=== PATIENT | female | born 1975 | race Two or more races ===

== ENCOUNTER 2017-06-12 09:53 | Day surgery (SDC) | payer OTHER ==
[2017-06-12 10:22] VITALS: BMI 30.2
[2017-06-12] MEDS ORDERED: PROPOFOL 20 ML ONE ×3 (11:45)
[2017-06-12] MEDS ORDERED: LIDOCAINE HCL/PF 2% SDV 5ML VIAL ONE (11:45)
[2017-06-12 12:22] VITALS: TEMP 97.5
[2017-06-12 15:58] VITALS: BP 124/68; PULSE 71
== END 2017-06-12 13:30 | disposition home or self-care (01) ==
LOC: JASU-ENDO 09:53
PROVIDERS: ATTEND Internal Medicine Gastroenterology
PROC: 0DJD8ZZ Inspection of Lower Intestinal Tract, Via Natural or Artificial Opening Endoscopic (ICD-10-PCS; principal; 2017-06-12 10:30)
DX: R19.4 Change in bowel habit (principal)
CPT/HCPCS: 84703

== ENCOUNTER 2021-10-13 13:43 | Observation (INO) | payer OTHER ==
[2021-10-13 16:18] LABS: ALBUMIN 3.6 g/dl (3.4-5.0); BLOOD UREA NITROGEN 12.2 mg/dL (7-18); CALCIUM 8.5 mg/dL (8.5-10.1)
[2021-10-13 16:19] LABS: BASO % 1.2 % (0-2.0); EOS % 2.1 % (0-4.5); LYMPH % 44.8 % (8-40); MCHC 28.4 g/dl (32.0-36.0); MEAN CELL VOLUME 53.7 fl (80-96); MEAN PLT VOLUME 8.2 fl (7.5-11.1); NEUT % 43.9 % (42.8-82.8); PLATELET COUNT 406 10^3/uL (134-434); RBC 4.29 M/mm3 (3.60-5.2)
[2021-10-13 16:21] LABS: CREATININE 0.5 mg/dL (0.55-1.3)
[2021-10-13 16:23] LABS: BILIRUBIN,TOTAL 0.2 mg/dL (0.2-1); TOT PROT 7.6 g/dl (6.4-8.2)
[2021-10-13 16:27] LABS: EPI CELLS >36 /uL (0-25.1); HYALINE CASTS 1 /uL (0-3.1); MCH 15.3 pg (25.7-33.7); URINE APPEARANCE CLEAR; URINE BACTERIA 4370 /uL (0-1359); URINE BILIRUBIN NEGATIVE (NEGATIVE); URINE COLOR YELLOW; URINE GLUCOSE (UA) NEGATIVE (NEGATIVE); URINE KETONE NEGATIVE (NEGATIVE); URINE LEUK ESTERASE NEGATIVE (NEGATIVE); URINE NITRITE NEGATIVE (NEGATIVE); URINE PROTEIN NEGATIVE (NEGATIVE); URINE RBC 4 /uL (0-23.9); URINE UROBILINOGEN 0.2 mg/dL (0.2-1.0); URINE WBC 25 /uL (0-25.8)
[2021-10-13 16:34] LABS: HEMOGLOBIN 6.5 GM/dL (10.7-15.3)
[2021-10-13 16:35] LABS: ADD RBC MORPHOLOGY YES
[2021-10-13 16:43] LABS: ACTIVATED PTT 24.9 SECONDS (25.2-36.5); INR 1.01 (0.83-1.09); PROTHROMBIN TIME (PATIENT) 11.6 SEC (9.7-13.0)
[2021-10-13 18:54] LABS: ANISOCYTOSIS 1+; MACROCYTOSIS 1+; OVALOCYTE 1+; PLATELET ESTIMATE NORMAL; TARGET CELLS 1+
[2021-10-13 23:33] VITALS: BMI 29.0
[2021-10-14 06:53] VITALS: PULSE 67
[2021-10-14] MEDS ORDERED: LEVOTHYROXINE NA 25 MCG TABLET (FP) PO SCH (07:00)
[2021-10-14 08:17] LABS: BASO % 0.9 % (0-2.0); HEMATOCRIT 25.8 % (32.4-45.2); HEMOGLOBIN 7.8 GM/dL (10.7-15.3); LYMPH % 48.5 % (8-40); MCHC 30.3 g/dl (32.0-36.0); MEAN CELL VOLUME 57.2 fl (80-96); MEAN PLT VOLUME 8.1 fl (7.5-11.1); MONO % 10.4 % (3.8-10.2); NEUT % 38.2 % (42.8-82.8); PLATELET COUNT 364 10^3/uL (134-434); RBC 4.52 M/mm3 (3.60-5.2); RDW 24.4 % (11.6-15.6); WHITE BLOOD COUNT 5.1 K/mm3 (4.0-10.0)
[2021-10-14 08:23] LABS: MCH 17.3 pg (25.7-33.7)
[2021-10-14] MEDS ORDERED: FERRIC CARBOXYMALTOSE 750 MG/15 ML VIAL IVPB ONE (08:30)
[2021-10-14 10:09] LABS: ALBUMIN 3.5 g/dl (3.4-5.0); CALCIUM 8.6 mg/dL (8.5-10.1)
[2021-10-14 10:10] LABS: BLOOD UREA NITROGEN 9.7 mg/dL (7-18)
[2021-10-14 10:12] LABS: CREATININE 0.7 mg/dL (0.55-1.3); PHOSPHOROUS 3.6 mg/dL (2.5-4.9)
[2021-10-14 10:14] LABS: BILIRUBIN,TOTAL 0.5 mg/dL (0.2-1); TOT PROT 7.3 g/dl (6.4-8.2)
[2021-10-14] MEDS ORDERED: FERRIC CARBOXYMALTOSE 750 MG in SODIUM CHLORIDE 250 ML IVPB ONE (10:39)
[2021-10-14 15:08] VITALS: BP 133/78; TEMP 98.3
== END 2021-10-14 18:36 | disposition home or self-care (01) ==
LOC: JER 13:43 → JERBED 16:50 → UNDOADMOB 16:50 → INTOOBSV 16:50 → JERBED 17:30 → J7W 22:49 → JERBED 22:49 → J7W 22:49
PROVIDERS: ADMIT Internal Medicine; ATTEND Internal Medicine
PROC: 3E033GC Introduction of Other Therapeutic Substance into Peripheral Vein, Percutaneous Approach (ICD-10-PCS; principal; 2021-10-13)
DX: K21.9 Gastro-esophageal reflux disease without esophagitis (principal); E07.9 Disorder of thyroid, unspecified; D64.9 Anemia, unspecified; N94.89 Other specified conditions associated with female genital organs and menstrual cycle; Z87.898 Personal history of other specified conditions; D25.9 Leiomyoma of uterus, unspecified
CPT/HCPCS: 36415; 36430; 71046-TC-FY; 76830-TC; 80053; 81003; 82272; 82728; 83540; 83550; 83735; 84100; 84443; 85025; 85610; 85730; 86850; 86900; 86901; 86922; 87086; 93005; 93010; 96365; 99285-25; C9803; G0378; J1439; P9038; P9058; U0003; U0005

== ENCOUNTER 2022-01-13 13:08 | Emergency (ER) | payer OTHER ==
[2022-01-13 13:26] VITALS: TEMP 98.4; BMI 31.1
[2022-01-13] MEDS ORDERED: DEXAMETHASONE SOD PHOSPHATE 10 MG/1 ML VIAL PO ONE (14:59)
[2022-01-13] MEDS ORDERED: KETOROLAC TROMETHAMINE 30 MG/1 ML VIAL IM ONE (14:59)
[2022-01-13] MEDS ORDERED: DEXAMETHASONE SOD PHOSPHATE 10 MG/1 ML VIAL ONE (15:03)
[2022-01-13] MEDS ORDERED: KETOROLAC TROMETHAMINE 30 MG/1 ML VIAL ONE (15:03)
[2022-01-13 16:42] VITALS: BP 115/78; PULSE 79
== END 2022-01-13 16:51 | disposition home or self-care (01) ==
LOC: JERFT 13:08
PROC: 3E023GC Introduction of Other Therapeutic Substance into Muscle, Percutaneous Approach (ICD-10-PCS; principal; 2022-01-13)
DX: M25.511 Pain in right shoulder (principal)
CPT/HCPCS: 73030-TC-RT-FY; 99284-25; J1100

== ENCOUNTER 2025-04-07 05:09 | Emergency (ER) | payer OTHER ==
[2025-04-07 05:16] VITALS: BP 127/81; PULSE 71; RESP 18; TEMP 97.9; BMI 31.1
[2025-04-07] MEDS ORDERED: LIDOCAINE 4% PATCH TP ONE (05:50)
[2025-04-07] MEDS ORDERED: KETOROLAC TROMETHAMINE 30 MG/1 ML VIAL ONE (05:50)
[2025-04-07] MEDS ORDERED: DEXAMETHASONE SOD PHOSPHATE 10 MG/1 ML VIAL ONE (05:50)
[2025-04-07] MEDS ORDERED: METHOCARBAMOL 500 MG TABLET ONE (05:50)
[2025-04-07] MEDS: METHOCARBAMOL 500 MG TABLET PO ONE (05:55)
[2025-04-07] MEDS: KETOROLAC TROMETHAMINE 30 MG/1 ML VIAL IM ONE (05:55)
[2025-04-07] MEDS: DEXAMETHASONE 4 MG TABLET (FP) PO ONE (05:56)
[2025-04-07] MEDS: LIDOCAINE 4% PATCH TP ONE (05:56)
[2025-04-07] MEDS ORDERED: LIDOCAINE PATCH REMOVAL MC ONE (17:00)
== END 2025-04-07 06:35 | disposition home or self-care (01) ==
LOC: JER 05:09
PROC: 3E0233Z Introduction of Anti-inflammatory into Muscle, Percutaneous Approach (ICD-10-PCS; principal; 2025-04-07)
DX: M25.511 Pain in right shoulder (principal)
CPT/HCPCS: 96372; 99284-25